=== PATIENT | male | born 1950 | race Caucasian/White ===

== ENCOUNTER → 2017-12-10 | Outpatient (CLI) | payer MEDICARE, OTHER ==
[2017-12-10 14:03] LABS: APPEARANCE, URINE CLEAR (CLEAR); BACTERIA, URINE AUTO NEGATIVE (NEGATIVE); BILIRUBIN, URINE AUTO NEGATIVE (NEGATIVE); BLOOD, URINE BLOOD 2+ (NEGATIVE); COLOR, URINE YELLOW (YELLOW); GLUCOSE, URINE (UA) AUTO NEGATIVE (NEGATIVE); KETONE, URINE AUTO NEGATIVE (NEGATIVE); LEUKOCYTE ESTERASE, URINE AUTO NEGATIVE (NEGATIVE); MUCUS, URINE SMALL (NEGATIVE); NITRITE, URINE AUTO NEGATIVE (NEGATIVE); PROTEIN, URINE AUTO NEGATIVE (NEGATIVE); RBC, URINE AUTO 23 /HPF (0-3); SPECIFIC GRAVITY URINE AUTO 1.017 (1.002-1.035); SQUAMOUS EPITHELIAL CELL UR AU 0 /HPF (0-6); UROBILINOGEN, URINE AUTO 0.2 mg/dL (0.0-2.0); WBC, URINE AUTO 0 /HPF (0-3)
[2017-12-10 16:16] LABS: ANION GAP 7 MEQ/L (8-16); BLOOD UREA NITROGEN 14 MG/DL (7-18); CALCIUM LEVEL 9.1 MG/DL (8.8-10.2); CARBON DIOXIDE LEVEL 29 MEQ/L (21-32); CHLORIDE LEVEL 107 MEQ/L (98-107); CREATININE FOR GFR 0.94 MG/DL (0.70-1.30); GLOMERULAR FILTRATION RATE > 60.0 (>49); GLUCOSE, FASTING 101 MG/DL (70-100); POTASSIUM SERUM 4.6 MEQ/L (3.5-5.1); SODIUM LEVEL 143 MEQ/L (136-145)
== END ==
LOC: M SMT 10:43
DX: R31.29 Other microscopic hematuria (principal)
CPT/HCPCS: 80048

== ENCOUNTER → 2018-04-01 | Outpatient (CLI) | payer MEDICARE, OTHER ==
[2018-04-01 13:59] LABS: HEMATOCRIT 46.2 % (42.0-52.0); HEMOGLOBIN 15.8 g/dl (13.5-17.5); MEAN CORPUSCULAR HEMOGLOBIN 31.9 pg (27.0-33.0); MEAN CORPUSCULAR HGB CONC 34.2 g/dl (32.0-36.5); MEAN CORPUSCULAR VOLUME 93.3 fl (80.0-96.0); PLATELET COUNT, AUTOMATED 162 10^3/uL (150-450); RED BLOOD COUNT 4.95 10^6/uL (4.30-6.10); RED CELL DISTRIBUTION WIDTH 12.7 % (11.5-14.5); WHITE BLOOD COUNT 6.2 10^3/uL (4.0-10.0)
[2018-04-01 14:10] LABS: INR 1.03; PROTHROMBIN TIME 13.6 SECONDS (12.1-14.4)
[2018-04-01 14:11] LABS: PARTIAL THROMBOPLASTIN TIME 28.5 SECONDS (25.4-37.6)
[2018-04-01 14:20] LABS: ANION GAP 7 MEQ/L (8-16); BLOOD UREA NITROGEN 19 MG/DL (7-18); CALCIUM LEVEL 8.6 MG/DL (8.8-10.2); CARBON DIOXIDE LEVEL 29 MEQ/L (21-32); CHLORIDE LEVEL 105 MEQ/L (98-107); CREATININE FOR GFR 1.03 MG/DL (0.70-1.30); GLOMERULAR FILTRATION RATE > 60.0 (>49); GLUCOSE, FASTING 131 MG/DL (70-100); POTASSIUM SERUM 4.5 MEQ/L (3.5-5.1); SODIUM LEVEL 141 MEQ/L (136-145)
[2018-04-01 14:21] LABS: APPEARANCE, URINE CLEAR (CLEAR); BACTERIA, URINE AUTO NEGATIVE (NEGATIVE); BILIRUBIN, URINE AUTO NEGATIVE (NEGATIVE); BLOOD, URINE BLOOD NEGATIVE (NEGATIVE); COLOR, URINE YELLOW (YELLOW); GLUCOSE, URINE (UA) AUTO NEGATIVE (NEGATIVE); KETONE, URINE AUTO NEGATIVE (NEGATIVE); LEUKOCYTE ESTERASE, URINE AUTO NEGATIVE (NEGATIVE); MUCUS, URINE SMALL (NEGATIVE); NITRITE, URINE AUTO NEGATIVE (NEGATIVE); PROTEIN, URINE AUTO NEGATIVE (NEGATIVE); RBC, URINE AUTO 11 /HPF (0-3); SQUAMOUS EPITHELIAL CELL UR AU 0 /HPF (0-6); UROBILINOGEN, URINE AUTO 0.2 mg/dL (0.0-2.0); WBC, URINE AUTO 0 /HPF (0-3)
== END ==
LOC: M SMT 09:49
DX: Z01.818 Encounter for other preprocedural examination (principal); N20.0 Calculus of kidney
CPT/HCPCS: 80048

== ENCOUNTER 2018-04-22 06:05 | Day surgery (SDC) | payer MEDICARE, OTHER ==
[2018-04-22] MEDS: LR 1,000 ML IV (07:06)
[2018-04-22] MEDS ORDERED: LIDOCAINE 2% INJ 100 MG/5 ML SDV (FOR ANES.) As Ordered (07:22)
[2018-04-22] MEDS ORDERED: PROPOFOL 200 MG/20 ML VIAL As Ordered (07:22)
[2018-04-22] MEDS ORDERED: fentaNYL 100 MCG/2 ML INJECTION (J3010) As Ordered (07:22)
[2018-04-22] MEDS ORDERED: MIDAZOLAM INJ 2 MG/2 ML VIAL (J2250) As Ordered (07:23)
[2018-04-22] MEDS ORDERED: ONDANSETRON 4MG/2ML VIAL (J2405) As Ordered (07:51)
[2018-04-22] MEDS ORDERED: dexameTHASONE 4 MG/ML 1ML VIAL (J1100) As Ordered (07:51)
== END 2018-04-22 09:30 | disposition home or self-care (01) ==
LOC: M SDC 06:05
DX: N20.0 Calculus of kidney (principal); I10 Essential (primary) hypertension; N40.0 Benign prostatic hyperplasia without lower urinary tract symptoms; M19.90 Unspecified osteoarthritis, unspecified site; M54.9 Dorsalgia, unspecified; R29.898 Other symptoms and signs involving the musculoskeletal system; G62.9 Polyneuropathy, unspecified; Z79.899 Other long term (current) drug therapy; Z79.82 Long term (current) use of aspirin; Z87.81 Personal history of (healed) traumatic fracture; Z98.42 Cataract extraction status, left eye; Z96.1 Presence of intraocular lens
CPT/HCPCS: 50590

== ENCOUNTER → 2018-05-13 | Outpatient (CLI) | payer MEDICARE, OTHER ==
[~2018-05-13] MED LIST: ASPI1TAB PO; BIMA01SOL OS; FISH7.5C PO; LISI10TA4; MULT1TAB10 PO; OCUVTAB4 PO
--- NOTE | 2018-05-13 11:31 | REP ---
KUB: Single view. History: Kidney stone. Comparison study: April 22, 2018. No comparison CT. Findings: There is evidence of an old healed left posterior 11th rib fracture. No other significant bony abnormality is seen. Vascular calcification is noted. Psoas margins are intact. There are phleboliths bilaterally in the pelvis. No urinary tract calculus is visible. Bowel gas pattern is normal. Electronically Signed by Chon Conner MD 05/13/2018 01:03 P
== END ==
LOC: M SMT 10:41
PROVIDERS: ATTEND Nurse Practitioner Women's Health
DX: I87.8 Other specified disorders of veins (principal); N20.0 Calculus of kidney

== ENCOUNTER 2023-07-21 16:25 | Inpatient (IN) | payer MEDICARE, OTHER ==
[~2023-07-21] VITALS: Ht 177.8 cm; Wt 106.4 kg
[~2023-07-21 16:25] MED LIST changes: -ASPI1TAB PO; +ASPI81TA26 PO; +FISH10005 PO; -FISH7.5C PO; +LISI10TA22; -LISI10TA4
[2023-07-21] MEDS ORDERED: TAMS1CAP17 (16:45)
[2023-07-21] MEDS ORDERED: CLOP75TA2 (16:45)
[2023-07-21 18:23] LABS: BASO % 0.3 % (0.0-1.0); EOS # 0.1 10^3/uL (0.0-0.5); EOS % 0.7 % (0.0-3.0); HEMATOCRIT 45.7 % (42.0-52.0); HEMOGLOBIN 15.9 g/dl (13.5-17.5); LYMPH # 1.4 10^3/uL (1.5-5.0); LYMPH % 13.1 % (24.0-44.0); MEAN CORPUSCULAR HEMOGLOBIN 32.3 pg (27.0-33.0); MEAN CORPUSCULAR HGB CONC 34.8 g/dl (32.0-36.5); MEAN CORPUSCULAR VOLUME 92.9 fl (80.0-96.0); MONO # 0.8 10^3/uL (0.0-0.8); MONO % 7.5 % (2.0-8.0); NEUTROPHILS % 77.9 % (36.0-66.0); PLATELET COUNT, AUTOMATED 144 10^3/uL (150-450); RED BLOOD COUNT 4.92 10^6/uL (4.30-6.10); WHITE BLOOD COUNT 10.3 10^3/uL (4.0-10.0)
[2023-07-21 18:50] LABS: BILIRUBIN,DIRECT 0.6 MG/DL (<0.4); CALCIUM LEVEL 9.1 MG/DL (8.3-10.6); CREATININE FOR GFR 4.73 MG/DL (0.70-1.30); POTASSIUM SERUM 3.9 MMOL/L (3.5-5.1); TOTAL PROTEIN 7.2 G/DL (5.7-8.2)
[2023-07-21] MEDS: NS 1,000 ML IV ONE (22:53)
[2023-07-21] MEDS: ONDANSETRON 4MG 2ML VIAL IV ONE (22:55)
[2023-07-21] MEDS: ACETAMINOPHEN *IV* 1,000 MG in IV 1 EA IV ONE (23:13)
[2023-07-21 23:23] LABS: INR 1.22
[2023-07-21] MEDS: MORPHINE 4 MG/ML 1ML VIAL IV PRN (23:25)
[2023-07-21 23:38] LABS: RSV AMPLIFICATION NEGATIVE (NEGATIVE)
[2023-07-22] VITALS (7 sets, daily range): BP systolic 168–198; BP diastolic 70–86; TEMP 98.2–99.3; O2SAT 91–95
[2023-07-22] MEDS ORDERED: ACETAMINOPHEN TAB 650MG DOSE (2X325MG) PO PRN ×2 (02:35→05:00)
[2023-07-22] MEDS ORDERED: HYDROMORPHONE HCL 0.5 MG/ 0.5 ML SYRINGE IV PRN (02:35)
[2023-07-22] MEDS ORDERED: ONDANSETRON 4MG 2ML VIAL IV PRN (02:35)
[2023-07-22] MEDS ORDERED: OCUVTAB4 PO (02:57)
[2023-07-22] MEDS ORDERED: OMEG10002 PO (02:57)
[2023-07-22] MEDS ORDERED: IBUP-1720 PO (02:57)
[2023-07-22] MEDS ORDERED: VITATAB73 PO (02:57)
[2023-07-22] MEDS ORDERED: LISI20TA33 PO (02:57)
[2023-07-22] MEDS ORDERED: HOME MED LIST COMPLETE! XX SCH (03:00)
[2023-07-22] MEDS: amLODIPine 5 MG TAB PO STA ×2 (03:47→20:03)
[2023-07-22] MEDS: NS 1,000 ML IV SCH (03:51)
[2023-07-22 08:08] LABS: BASO % 0.2 % (0.0-1.0); EOS % 0.4 % (0.0-3.0); HEMATOCRIT 41.7 % (42.0-52.0); HEMOGLOBIN 14.2 g/dl (13.5-17.5); LYMPH # 0.9 10^3/uL (1.5-5.0); LYMPH % 9.3 % (24.0-44.0); MEAN CORPUSCULAR HEMOGLOBIN 32.1 pg (27.0-33.0); MEAN CORPUSCULAR HGB CONC 34.1 g/dl (32.0-36.5); MEAN CORPUSCULAR VOLUME 94.1 fl (80.0-96.0); MONO # 0.8 10^3/uL (0.0-0.8); NEUTROPHILS # 7.7 10^3/uL (1.5-8.5); NEUTROPHILS % 81.7 % (36.0-66.0); PLATELET COUNT, AUTOMATED 131 10^3/uL (150-450); RED BLOOD COUNT 4.43 10^6/uL (4.30-6.10); WHITE BLOOD COUNT 9.4 10^3/uL (4.0-10.0)
[2023-07-22 08:31] LABS: CALCIUM LEVEL 8.2 MG/DL (8.3-10.6); CREATININE FOR GFR 5.06 MG/DL (0.70-1.30); MAGNESIUM LEVEL 1.9 MG/DL (1.8-2.4); POTASSIUM SERUM 4.4 MMOL/L (3.5-5.1)
[2023-07-22] MEDS: TAMSULOSIN 0.4 MG CAP PO SCH (08:42)
[2023-07-22] MEDS: HYDROMORPHONE HCL 0.5 MG/ 0.5 ML SYRINGE IV PRN (08:49)
[2023-07-22] MEDS: ASPIRIN 81MG ENTERIC TABLET PO SCH (08:59)
[2023-07-22] MEDS: hydrALAZINE 20MG/ML 1ML VIAL IV PRN (09:00)
[2023-07-22] MEDS: amLODIPine 5 MG TAB PO SCH (10:27)
[2023-07-22] MEDS ORDERED: dexmedeTOMIDine (4MCG/ML)200MCG/50ML BTL (PRECEDEX) As Ordered ONE (17:13)
[2023-07-22] MEDS ORDERED: METOCLOPRAMIDE INJ 10MG/2ML VIAL As Ordered ONE (17:13)
[2023-07-22] MEDS ORDERED: MIDAZOLAM INJ 2MG/2ML VIAL As Ordered ONE (17:13)
[2023-07-22] MEDS ORDERED: fentaNYL 100 MCG/2 ML INJECTION As Ordered ONE (17:13)
[2023-07-22] MEDS ORDERED: propofoL 200 MG/20 ML VIAL As Ordered ONE (17:13)
[2023-07-22] MEDS ORDERED: ONDANSETRON 4MG 2ML VIAL As Ordered ONE (17:13)
[2023-07-22] MEDS ORDERED: LIDOCAINE 2% 100MG/5ML SDV (FOR ANES.) As Ordered ONE (17:13)
[2023-07-22] MEDS ORDERED: ISOVUE-300 61% 100ML VIAL As Ordered ONE (17:30)
[2023-07-22] MEDS: ceFAZolin 1GM VIAL As Ordered ONE (17:46)
[2023-07-22] MEDS ORDERED: fentaNYL 100 MCG/2 ML INJECTION IV PRN (17:55)
[2023-07-22] MEDS ORDERED: PERCOCET 5MG/325MG TAB PO PRN (17:55)
[2023-07-22] MEDS: ONDANSETRON 4MG 2ML VIAL IV PRN (18:23)
[2023-07-22] MEDS: OMEGA-3 1000MG CAPSULE PO SCH (20:03)
[2023-07-22 20:09] LABS: CALCIUM LEVEL 8.2 MG/DL (8.3-10.6); CREATININE FOR GFR 4.21 MG/DL (0.70-1.30); GLOMERULAR FILTRATION RATE 14.8 (>42); POTASSIUM SERUM 4.3 MMOL/L (3.5-5.1)
[2023-07-23] VITALS (13 sets, daily range): BP systolic 140–188; BP diastolic 69–84; TEMP 97.4–98.9; O2SAT 91–96
[2023-07-23] MEDS: LABETALOL 100MG/20ML VIAL IV STA (00:39)
[2023-07-23 01:09] LABS: CALCIUM LEVEL 8.4 MG/DL (8.3-10.6); CREATININE FOR GFR 2.87 MG/DL (0.70-1.30); GLOMERULAR FILTRATION RATE 23.1 (>42); POTASSIUM SERUM 4.5 MMOL/L (3.5-5.1)
[2023-07-23 05:53] LABS: HEMATOCRIT 40.2 % (42.0-52.0); HEMOGLOBIN 14.1 g/dl (13.5-17.5); LYMPH # 0.5 10^3/uL (1.5-5.0); LYMPH % 9.2 % (24.0-44.0); MEAN CORPUSCULAR HEMOGLOBIN 32.1 pg (27.0-33.0); MEAN CORPUSCULAR HGB CONC 35.1 g/dl (32.0-36.5); MEAN CORPUSCULAR VOLUME 91.6 fl (80.0-96.0); MONO # 0.3 10^3/uL (0.0-0.8); NEUTROPHILS # 4.9 10^3/uL (1.5-8.5); NEUTROPHILS % 85.3 % (36.0-66.0); PLATELET COUNT, AUTOMATED 142 10^3/uL (150-450); RED BLOOD COUNT 4.39 10^6/uL (4.30-6.10); WHITE BLOOD COUNT 5.8 10^3/uL (4.0-10.0)
[2023-07-23 06:17] LABS: CALCIUM LEVEL 8.4 MG/DL (8.3-10.6); CREATININE FOR GFR 2.13 MG/DL (0.70-1.30); GLOMERULAR FILTRATION RATE 32.6 (>42); MAGNESIUM LEVEL 1.9 MG/DL (1.8-2.4); POTASSIUM SERUM 4.3 MMOL/L (3.5-5.1)
[2023-07-23] MEDS: NS 1,000 ML IV SCH (08:30)
[2023-07-23] MEDS: amLODIPine 5 MG TAB PO ONE (10:14)
[2023-07-23] MEDS: **hydrALAZINE HCL** 25 MG TAB PO ONE ×2 (12:37→14:06)
[2023-07-23] MEDS: HEPARIN SOD (PORCINE) 5000UNITS/ML 1ML VIAL/SYRINGE SQ SCH (14:05)
[2023-07-23 16:02] LABS: CALCIUM LEVEL 8.4 MG/DL (8.3-10.6); CREATININE FOR GFR 1.63 MG/DL (0.70-1.30); GLOMERULAR FILTRATION RATE 44.4 (>42); POTASSIUM SERUM 4.2 MMOL/L (3.5-5.1)
[2023-07-23] MEDS ORDERED: **hydrALAZINE HCL** 25 MG TAB PO SCH (22:00)
[2023-07-23] MEDS: **hydrALAZINE** 50 MG TAB PO SCH (22:14)
[2023-07-24 03:24] VITALS: BP 155/70; TEMP 97.8; O2SAT 93
[2023-07-24 05:46] LABS: BASO % 0.5 % (0.0-1.0); EOS # 0.2 10^3/uL (0.0-0.5); EOS % 3.3 % (0.0-3.0); HEMATOCRIT 40.7 % (42.0-52.0); HEMOGLOBIN 14.2 g/dl (13.5-17.5); LYMPH # 2.1 10^3/uL (1.5-5.0); MEAN CORPUSCULAR HEMOGLOBIN 32.1 pg (27.0-33.0); MEAN CORPUSCULAR HGB CONC 34.9 g/dl (32.0-36.5); MEAN CORPUSCULAR VOLUME 91.9 fl (80.0-96.0); MONO # 0.6 10^3/uL (0.0-0.8); MONO % 7.5 % (2.0-8.0); NEUTROPHILS # 4.4 10^3/uL (1.5-8.5); NEUTROPHILS % 59.4 % (36.0-66.0); PLATELET COUNT, AUTOMATED 163 10^3/uL (150-450); RED BLOOD COUNT 4.43 10^6/uL (4.30-6.10); WHITE BLOOD COUNT 7.4 10^3/uL (4.0-10.0)
[2023-07-24 06:09] LABS: CALCIUM LEVEL 8.3 MG/DL (8.3-10.6); CREATININE FOR GFR 1.36 MG/DL (0.70-1.30); GLOMERULAR FILTRATION RATE 54.7 (>42); MAGNESIUM LEVEL 1.8 MG/DL (1.8-2.4); POTASSIUM SERUM 4.2 MMOL/L (3.5-5.1)
[2023-07-24] MEDS: PERCOCET 5MG/325MG TAB PO STA (06:19)
[2023-07-24 08:22] VITALS: BP 163/70; TEMP 98; O2SAT 93
[2023-07-24] MEDS ORDERED: PERCOCET 5MG/325MG TAB PO PRN (08:25)
[2023-07-24 11:16] VITALS: BP 162/60
[2023-07-24] MEDS ORDERED: OXYC1TAB23 PO (12:04)
[2023-07-24] MEDS: CARVedilol 12.5 MG TAB PO ONE (12:15)
[2023-07-24 13:23] VITALS: BP 140/70
[2023-07-24] MEDS ORDERED: AMLO1TAB25 PO (13:37)
[2023-07-24] MEDS ORDERED: CARV12.5 PO (13:37)
[2023-07-24] MEDS ORDERED: HYDR25TA87 PO (13:37)
[2023-07-24 14:00] VITALS: BP 138/60
== END 2023-07-24 14:41 | disposition home or self-care (01) | DRG 661 ==
LOC: M ED 16:25 → M ED INP 07-22 02:49 → M PCU 07-22 16:02
PROVIDERS: ADMIT Family Medicine; ATTEND Family Medicine
PROC: 0T778DZ Dilation of Left Ureter with Intraluminal Device, Via Natural or Artificial Opening Endoscopic (ICD-10-PCS; principal; 2023-07-22 16:00)
DX: N13.2 Hydronephrosis with renal and ureteral calculous obstruction (principal); N40.1 Benign prostatic hyperplasia with lower urinary tract symptoms; N17.9 Acute kidney failure, unspecified; I10 Essential (primary) hypertension; G47.33 Obstructive sleep apnea (adult) (pediatric); D69.6 Thrombocytopenia, unspecified; Z79.82 Long term (current) use of aspirin; Z79.899 Other long term (current) drug therapy; Z11.52 Encounter for screening for COVID-19

== ENCOUNTER → 2023-08-13 | Outpatient (REF) | payer MEDICARE, OTHER ==
[~2023-08-13] MED LIST changes: +AMLO1TAB25 PO; +CARV12.5 PO; +CLOP75TA2; +HYDR25TA87 PO; +IBUP-1720 PO; +LISI20TA33 PO; +OMEG10002 PO; +OXYC1TAB23 PO; +TAMS1CAP17; +VITATAB73 PO
== END ==
LOC: M SMT 17:03
PROVIDERS: ATTEND Urology
DX: N20.1 Calculus of ureter (principal)

== ENCOUNTER 2023-09-03 07:16 | Day surgery (SDC) | payer MEDICARE, OTHER ==
[~2023-09-03] VITALS: Ht 175.3 cm; Wt 99.3 kg
[2023-09-03] MEDS ORDERED: LR 1,000 ML IV SCH ×2 (07:50→11:50)
[2023-09-03] MEDS ORDERED: ACETAMINOPHEN 1000MG 100ML IV BAG As Ordered ONE (10:49)
[2023-09-03] MEDS ORDERED: fentaNYL 100 MCG/2 ML INJECTION As Ordered ONE (10:49)
[2023-09-03] MEDS ORDERED: LIDOCAINE PRES-FREE 2% 10ML AMP As Ordered ONE (10:49)
[2023-09-03] MEDS ORDERED: propofoL 200 MG/20 ML VIAL As Ordered ONE (10:49)
[2023-09-03] MEDS ORDERED: ONDANSETRON 4MG 2ML VIAL As Ordered ONE (10:49)
[2023-09-03] MEDS ORDERED: OXYC1TAB23 PO (10:56)
[2023-09-03] MEDS: ceFAZolin SOD 2 GM in IV 1 EA IV ONE (11:10)
[2023-09-03] MEDS: LIDOCAINE 2% 5ML JELLY UROJET As Ordered ONE (11:40)
[2023-09-03] MEDS ORDERED: oxyCODONE 5MG TAB PO PRN (11:50)
[2023-09-03] MEDS ORDERED: ONDANSETRON 4MG 2ML VIAL IV PRN (11:50)
[2023-09-03 12:30] VITALS: BP 151/70; TEMP 97.2; O2SAT 96
== END 2023-09-03 13:15 | disposition home or self-care (01) ==
LOC: M SDC 07:16
PROVIDERS: ATTEND Urology
DX: N20.1 Calculus of ureter (principal); I10 Essential (primary) hypertension; G47.30 Sleep apnea, unspecified; N40.0 Benign prostatic hyperplasia without lower urinary tract symptoms; Z79.899 Other long term (current) drug therapy; G62.9 Polyneuropathy, unspecified
CPT/HCPCS: 50590; 74018; J0131; J0690; J1100; J2405; J3010

== ENCOUNTER 2023-10-15 07:57 | Day surgery (SDC) | payer MEDICARE, OTHER ==
[~2023-10-15] VITALS: Ht 177.8 cm; Wt 100.1 kg
[~2023-10-15 07:57] MED LIST changes: +BETA PROSTATE PO; +IBUP200C29 PO; +PRES10CA2 PO
[2023-10-15] MEDS ORDERED: LR 1,000 ML IV SCH (08:40)
[2023-10-15] MEDS ORDERED: fentaNYL 100 MCG/2 ML INJECTION As Ordered ONE (10:20)
[2023-10-15] MEDS ORDERED: LIDOCAINE 2% 100MG/5ML SDV (FOR ANES.) As Ordered ONE (10:20)
[2023-10-15] MEDS ORDERED: ONDANSETRON 4MG 2ML VIAL As Ordered ONE (10:20)
[2023-10-15] MEDS ORDERED: propofoL 200 MG/20 ML VIAL As Ordered ONE (10:20)
[2023-10-15] MEDS: ceFAZolin SOD 2 GM in IV 1 EA IV ONE (11:11)
[2023-10-15] MEDS ORDERED: FLOM0.4C39 PO (11:19)
[2023-10-15] MEDS ORDERED: ACETAMINOPHEN 1000MG 100ML IV BAG As Ordered ONE (11:20)
[2023-10-15 11:46] VITALS: BP 140/65; TEMP 98; O2SAT 95
== END 2023-10-15 12:15 | disposition home or self-care (01) ==
LOC: M SDC 07:57
PROVIDERS: ATTEND Urology
DX: N20.0 Calculus of kidney (principal); I12.9 Hypertensive chronic kidney disease with stage 1 through stage 4 chronic kidney disease, or unspecified chronic kidney disease; N18.9 Chronic kidney disease, unspecified; G62.9 Polyneuropathy, unspecified; G47.30 Sleep apnea, unspecified; Z79.899 Other long term (current) drug therapy
CPT/HCPCS: 50590; 74018; J0131; J0690; J1100; J2405; J3010

== ENCOUNTER → 2025-02-23 | Outpatient (REF) | payer MEDICARE, OTHER ==
[~2025-02-23] MED LIST changes: +AMOX875T2; +ELIQ5TAB; +TAMS-18 PO
[2025-02-23 15:24] LABS: APPEARANCE, URINE CLEAR (CLEAR); BACTERIA, URINE AUTO NEGATIVE (NEGATIVE); BILIRUBIN, URINE AUTO NEGATIVE (NEGATIVE); BLOOD, URINE BLOOD NEGATIVE (NEGATIVE); GLUCOSE, URINE (UA) AUTO NEGATIVE (NEGATIVE); KETONE, URINE AUTO NEGATIVE (NEGATIVE); LEUKOCYTE ESTERASE, URINE AUTO NEGATIVE (NEGATIVE); MUCUS, URINE SMALL (NEGATIVE); NITRITE, URINE AUTO NEGATIVE (NEGATIVE); PROTEIN, URINE AUTO NEGATIVE (NEGATIVE); RBC, URINE AUTO 0 /HPF (0-3); SPECIFIC GRAVITY URINE AUTO 1.015 (1.002-1.035); SQUAMOUS EPITHELIAL CELL UR AU 0 /HPF (0-6); UROBILINOGEN, URINE AUTO 0.2 mg/dL (0.0-2.0); WBC, URINE AUTO 2 /HPF (0-3)
== END ==
LOC: M SMT 14:53
PROVIDERS: ATTEND Physician Assistant
DX: R35.0 Frequency of micturition (principal)